=== PATIENT | female | born 1990 | race Caucasian/White ===

== ENCOUNTER 2017-07-15 17:11 | Emergency (ER) | payer BC ==
[2017-07-15 19:01] VITALS: BP 113/67
[2017-07-15] MEDS ORDERED: Fluorescein Sodium TOPICAL* 1 MG TEST ONE (19:02)
[2017-07-15] MEDS ORDERED: Tetracaine 0.5% OPTH.SOL 4 ML* 1 DROP BTL ONE (19:02)
[2017-07-15] MEDS ORDERED: BSS OPTH.SOL* BTL ONE (19:02)
[2017-07-15] MEDS ORDERED: Tetracaine 0.5% OPTH.SOL 4 ML* 1 DROP BTL LEFT EYE ONE (19:06)
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
== END 2017-07-15 19:31 | disposition home or self-care (01) ==
LOC: UCCORT 17:11
DX: S05.02XA Injury of conjunctiva and corneal abrasion without foreign body, left eye, initial encounter (principal); X58.XXXA Exposure to other specified factors, initial encounter; Y93.89 Activity, other specified; Y92.9 Unspecified place or not applicable; H54.40 Blindness, one eye, unspecified eye; F41.9 Anxiety disorder, unspecified; Z87.891 Personal history of nicotine dependence
CPT/HCPCS: 99212; A9270-GY; G0463